=== PATIENT | female | born 1980 | race Hispanic/Latino ===

== ENCOUNTER 2025-02-17 14:08 | Outpatient (CLI) | payer OTHER, SELFPAY ==
--- NOTE | ~2025-02-17 | MM_ITS ---
EXAMINATION: MM screening eva BI w tammy HISTORY: Screening TECHNIQUE: Craniocaudal and mediolateral oblique 3-D tomosynthesis images were obtained and synthetic 2-D images were generated. CAD analysis was submitted and interpreted. COMPARISON: Baseline. BREAST PARENCHYMAL COMPOSITION: The breasts are heterogeneously dense, which may obscure small masses . FINDINGS: There is no evidence of suspicious mass, calcification, or architectural distortion to sug gest malignancy in either breast. IMPRESSION: 1. No mammographic evidence of malignancy. 2. Recommend routine screening mammography in one year. BI-RADS Category 1: Negative Reviewed, dictated and finalized at location B.
--- OUTSIDE RECORDS SUMMARY | 2025-02-17 14:15 | XMS_ITS | Clinical Summary ---
Author Organization [address] Address [address] [place] [address] Care Team Providers Care Quality Eng Name Role Phone Kedny Schuster Primary Care Provider [phone] Mini Jones MD Unavailable + [phone] Allergies Active Allergy Reactions Criticality Noted Date Comments Grass Pollen Itching Low 12/07/2021 Pollen Extracts Itching Low 12/07/2021 Puffy eyes Medications levonorgestreL (Mirena) IUD Rx: Mirena Active fexofenadine (ROSIO) 180 mg tablet Take 180 mg by mouth daily Active Active Problems Problem Noted Date Diagnosed Date Irritable bowel syndrome wit h both constipation and diarrhea 12/07/2021 Annual physical exam 05/04/2020 Assessment & Plan (12/07/2021 11:26 AM CDT): Exercise 5 days a week, 30 mins per day recommended. Eat a heart healthy diet consisting of good, healthy protein (eggs, nuts, peanut butter, chicken, fish, turkey, less pork/beef), lots of vegetables, less carbohydrates and less sugar. Annual physical recommended. Vaccines utd Mamm scheduling PAP utd w. HAIR STYLIST Assessment & Plan (05/04/2020 8:24 AM CDT): Exercise 5 days a week, 30 mins per day recommended. Eat a heart healthy diet consisting of good, healthy protein (eggs, nuts, peanut butter, chicken, fish, turkey, less pork/beef), lots of vegetables, less carbohydrates and less sugar. Annual physical recommended. PAP- Jun 2019, nml- [facility] Tdap- 3 years ago w/ angela Flu- at work Non-seasonal allergic rhinitis due to pollen Resolved Problems Problem Noted Date Diagnosed Date Resolved Date Fecal soiling due to fecal incontinence 07/17/2018 05/04/2020 Immunizations Immunization Administration Dates Next Due Influenza, Quadrivalent, Ellen l Culture-based MDCK, Preservative Free, Antibiotic Free, Intramuscular 05/13/2020 Influenza, Unspecified 04/29/2021 Rho (D) Immune Globulin, IV or IM 02/13/2017 Tdap 01/06/2014 Surgical History Surgery Date Site/Laterality Comments CATARACT EXTRACTION Medical History Medical History Date Comments Fecal soiling due to fecal incontinence 07/17/20 18 Non-seasonal allergic rhinitis due to pollen PFO (patent foramen ovale) Close d at 7 years old Family History Medical History Relation Name Comments No Known Problems Father No Known Problems Mother Arthritis Paternal Grandfather Diabetes Paternal Grandfather Heart disease Paternal Grandmother Relation Name Status Comments Brother Alive Father Alive Maternal Grandfather Maternal Grandmother Mother Alive Paternal Grandfather Paternal Grandmother Social History Tobacco Use Types Packs/Day Years Used Date Smoking Tobacco: Never Alcohol Use Standard Drinks/Week Comments Yes 0 (1 standard drink = 0.6 oz pur e alcohol) socially AUDIT-C Answer Date Recorded Q1: How often do you have a drink containing alc ohol? 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 Gender Identity Not on file Sexual Orientation Not on file Obstetrics History Last Filed Vital Signs Vital Sign Reading Time Taken Comments Blood Pressure 122/78 12/07/2021 9:54 AM CDT Pulse 82 12/07/2021 9:54 AM CDT Temperature 36.3 C (97.3 F) 12/07/2021 9:54 AM CDT Respiratory Rate 14 12/07/2021 9:54 AM CDT Oxygen Saturation 97% 12/07/2021 9:54 AM CDT Inhaled Oxygen Concentration - - Weight 83.5 kg (184 lb) 12/07/2021 9:54 AM CDT Height 160 cm (5' 3) 12/07/2021 9:54 AM CDT Body Mass Index 32.59 12/07/2021 9:54 AM CDT Plan of Treatment Health Maintenance Due Date Last Done Comments Breast Cancer Screening-Mammogram 1981 Hepatitis C Screening 1981 Hepatitis B Screening 1999 Cervical Cancer Screening 11/03/2022 11/03/2021 Depression Screening 12/07/2022 12/07/2021, 05/04/2020 Regular Well Visit/Exam 18-64 12/07/2022 12/07/2021, 05/04/2020, 05/04/2020 DTaP/Tdap/Td Vaccine (2 - Td or Tdap) 01/07/2024 01/06/2014 Covid-19 Vaccine ( season) 2024 06/29/2021, 10/26/2020, 09/28/2020 Influenza Vaccine (Season Ended) 2025 04/29/2021, 05/13/2020 HPV Vaccines Aged Out No longer eligi ble based on patient's age to complete this topic Pneumococcal vaccine <65 Aged Out No longer eligible based on patient's age to complete this topic Varicella Vaccines Discontinued Procedures Procedure Name Priority Date/Time Associated Diagnosis Comments PAP SMEAR WITH HPV Routine 11/03/2021 from Last 3 Months or Most Recently Relevant to Health Maintenance Results * HM PAP SMEAR WITH HPV (11/03/2021) Scribed Pap Smear w/HPV Normal Comment:SEE CARE EVERYWHERE Historical Provider MD HEALTH MAINTENANCE Final Result from Last 3 Months or Most Recently Relevant to Health Maintenance Insurance [employer] Care Teams Quality Eng Relationship Specialty Start Date End Date Kendy Schuster PA [address] [place] [address] PCP - General Critical Care Med 01/08/19 Mini Jones MD [address] [place] [address] Consulting Physician Family Medicine 01/08/19
--- OUTSIDE RECORDS SUMMARY | 2025-02-17 14:15 | XMS_ITS | Referral Summary ---
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 Eat a heart healthy diet consisting of good, healthy protein (eggs, nuts, peanut butter, chicken, fish, turkey, less pork/beef), lots of vegetables, less carbohydrates and less sugar. Annual physical recommended. 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 Gender Identity Not on file Sexual Orientation Not on file Last Filed Vital Signs Vital Sign Reading [...] 12/07/2021 9:54 AM CDT Plan of Treatment Not on file Procedures Procedure Name Priority Date/Time Associated Diagnosis Comments PAP SMEAR WITH HPV Routine 11/03/2021 from Last 3 Months or Most Recently Relevant to Health Maintenance Results * PAP SMEAR WITH HPV (11/03/2021) Scribed Pap Smear w/HPV Normal Comment:SEE CARE EVERYWHERE us Historical Provider MD HEALTH MAINTENANCE Final Result from Last 3 Months or Most Recently Relevant to Health Maintenance Insurance [employer] Care Teams Body Fitter Relationship Specialty Start Date End Date Kendy Schuster PA [address] [place] [address] PCP - General Critical Care Med 01/08/19 Mini Jones MD [address] [place] [address] Consulting Physician Family Medicine 01/08/19
--- OUTSIDE RECORDS SUMMARY | 2025-02-17 14:16 | XMS_ITS | Clinical Summary ---
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
--- OUTSIDE RECORDS SUMMARY | 2025-02-17 14:16 | XMS_ITS | Clinical Summary ---
Author Organization [facility] Address [address] [place] [address] Care Team Providers Care Industrial Maintenance Repairer Name Role Phone Danii Pagan RN Unavailable Marivel Andrews MD Primary Care Provider [phone] Source Comments [facility],non-[facility]iliates and Associated Physician Practices is amultiple site organization consisting of ambulatory clinics and hospital sitesin [place] and [place]. This disclosure is being madepursuant to the Care Everywhere program and may not contain all information available regarding this patient. Last updated 18.[facility] Social History Tobacco Use Types Packs/Day Years Used Date Smoking Tobacco: Never Assessed Comments Unknown Sex and Gender Information Value Date Recorded Sex Assigned at Not on file Legal Sex Female 12:02 PM CDT Gender Identity Not on file Sexual Orientation Not on file Plan of Treatment Health Maintenance Due Date Last Done Comments LIPID TESTING 1981 MAMMOGRAM 1981 HIV SCREENING 1996 HEPATITIS C SCREENING 03/12/1999 DTAP/TDAP/TD VACCINES (1 - Tdap) 2000 HEPATITIS B VACCINE (1 of 3 - 19+ 3-dose series) 2000 HPV VACCINE (1 - 3-dose SCDM series) 2008 COVID-19 VACCINE (1 - 2023-2 5 season) 2024 DEPRESSION SCREENING 07/30/2024 INFLUENZA VACCINE (#1) 2025 ZOSTER VACCINE (1 of 2) 2031 HIB VACCINE Aged Out No longer eligi ble based on patient's age to complete this topic MENINGOCOCCAL (Group B) VACC INE SHARED DECISION-MAKING Aged Out No longer eligibl e based on patient's age to complete this topic MENINGOCOCCAL GROUPS A/C/Y/W VACCINE Aged Out No longer eligible b ased on patient's age to complete this topic PNEUMOCOCCAL VACCINE Aged Out No long er eligible based on patient's age to complete this topic Insurance ANTHEM ANTHEM ANTHEM Care Teams Industrial Maintenance Repairer Relationship Specialty Start Date End Date Marivel Falcon MD [address] [place] [address] PCP - General Family Medicine 11/10/13 Danii Pagan RN Trash Collector Supervisor 10/06/13
--- OUTSIDE RECORDS SUMMARY | 2025-02-17 14:16 | XMS_ITS | Data Portability ---
Author Organization [facility] Address [address] [place] [address] [address] Care Team Providers Care Web Site Manager Name Role Phone JORDYN BUNDY Primary Care Provider Assessment Encounter Date Assessment Date Assessment LastModified by Organization Details LastModified Time 06/24/2024 06/24/2024 Annual gynecological exam performed. Patient will come back in a year unless there are new symptoms. [email or web address] Not available 06/24/2024 15:47:51 Plan of Treatment Reminders Order Date Submit Date Provider Last Modified By Organization Details Last Modified Time Details Appointments None recorded. Lab test, urine 2023 [facility], [address], [address], [place], [address], 4 10:44:38 hormone panel, serum or plasma 2023 [facility] (Lab), [address], [place], [address], 4 05:40:45 CMP, serum or plasma 2023 [facility] (Lab), [address], [place], [address], 4 05:40:44 CBC w/ auto diff 2023 [facility] (Lab), [address], [place], [address], 4 05:40:43 lipid panel, blood 2023 024 [facility] (Lab), [address] [facility], [place], [address], 4 05:40:44 HbA1c (hemoglobin A1c), blood 2023 [facility] (Lab), [address], [place], [address], 4 05:40:46 25-hydroxyv itamin D2 + 25-hydroxyv itamin D3, QN, serum or plasma 2023 [facility] (Lab), [address], [place], [address], 4 05:40:45 TSH, serum or plasma 2023 024 [facility] (Lab), [address], [place], [address], 4 05:40:45 Referral None recorded. Procedures None recorded. Surgeries None recorded. Imaging None recorded. Medication Orders estradiol 0.05 mg/24 hr semiweekly transdermal patch 2024 025 [id number], [address], [place], [id number], 5 11:58:39 estradiol 0.05 mg/24 hr semiweekly transdermal patch 2023 024 [id number], [address], [place], [id number], 4 10:21:00 Mirena 21 mcg/24 hr (up to 8 years) 52 mg intrauterin e device 2023 024 [email or web address] Not available 4 14:15:14 Patient TargetsNo targets recorded. Patient InstructionsNo instructions recorded. Reason for Referral None Reported. Results Created Date Observation Date Name Description Value Unit Range Abnormal Flag Note LastModifiedBy Organization Detail LastModifiedTime 04/09/20 23 04/09/2023 IMAGE GUIDE D PAP AND HPV REGAR DLESS image guided Pap, HPV regardless of Pap result SEE RESULT S BELOW abnormal CASE REPOR T: Cytol ogy Gynec ologi dominik Repor t Case: [id number] Autho suleiman ayala Provi lopez: Ying Desir, MACHINIST APPRENTICE Colle cted: 04/09 1710 Order ing Locat ion: [place] Patho logy Recei noé: 04/10 0311 First Scree n: Praveena Nuno , MARK Patho logis t: Ashutosh Avila MD Speci men: Scree radha Pap - Image d, Cervi x STATE MENT OF ADEQU ACY: Satis facto ry for evalu ation Trans forma tion zone compo nent prese nt FINAL DIAGN OSIS: Epith elial Cell Abnor malit y, Squam ous Cell: Atypi dominik Squam ous Cells of Undet ermin ed Oliviai mike ce (ASC- [place]). Elect chrystal coe by Ashutosh Avila MD on 2022 at 3:30 PM ----- ----- ----- ----- ----- ----- ----- ----- ----- ----- ----- ----- ----- ----- ----- ----- ----- ---- HPV RESUL TS: HPV mRNA E6/E7 : No HPV mRNA Detec smith NOTE: This high risk HPV mRNA assay detec ts fourt een high- risk HPV types (16, 18, 31, 33, 35, 39, 45, 51, 52, 56, 58, 59, 66, 68) witho ut diffe renti ation . COMME NT: This speci men was revie wed by a Cytot echno logis t and/o r Patho logis t (as indic ated in this repor t) after evalu ation using the Thinp rep Imagi ng Syste m. CLINI DOMINIK INFOR MATIO N: Menst rual Statu s: LMP (if appli cable ): Clini dominik Histo ry/Pr eviou s Pap: Type of Neopl won (if appli cable ): Signi fican t Clini dominik Findi ngs: Other Histo ry: Hormo codi (if appli cable ): SUGLENKA STED FOLLO W-UP: Follo w up as warra nted, based on curre nt guide lines and indiv idual patie nt consi derat ions. Not Available [facility] (Lab) [address], [place], [address], 04/12/2023 16:32:39 06/24/20 24 06/24/2024 IMAGE GUIDE D PAP AND HPV REGAR DLESS image guided Pap, HPV regardless of Pap result SEE RESULT S BELOW CASE REPOR T: Cytol ogy Gynec ologi dominik Repor t Case: [id number] Autho suleiman jamie Provi lopez: Ying Desir, TARA Colle cted: 06/24 1605 Order ing Locat ion: [place] Patho logy Recei noé: 06/25 1723 First Scree n: Shamika Tavarez, CT Rescr een: Biju ivan, [place] am, CT Speci men: Bhavesh garcia Pap - Image d, Cervi x STATE MENT OF ADEQU ACY: UNSAT ISFAC TORY SPECI MEN ----- ----- ----- ----- ----- ----- ----- ----- ----- ----- ----- ----- ----- ----- ----- ----- ----- ---- FINAL DIAGN OSIS: Unsat isfac tory for evalu ation . Inade quate squam ous epith elial compo nent for diagn osis. Elect chrystal coe by Carmen Lynn for Strut z, [place] am, CT on 07/08 at 10:44 AM ----- ----- ----- ----- ----- ----- ----- ----- ----- ----- ----- ----- ----- ----- ----- ----- ----- ---- HPV RESUL TS: HPV mRNA E6/E7 : No HPV mRNA Detec smith NOTE: This high risk HPV mRNA assay detec ts fourt een high- risk HPV types (16, 18, 31, 33, 35, 39, 45, 51, 52, 56, 58, 59, 66, 68) witho ut diffe renti ation . COMME NT: This speci men was revie wed by a Cytot echno logis t and/o r Patho logis t (as indic ated in this repor t) after evalu ation using the Thinp rep Imagi ng Syste m. CLINI DOMINIK INFOR MATIO N: Menst rual Statu s: LMP (if appli cable ): Clini dominik Histo ry/Pr eviou s Pap: Type of Neopl won (if appli cable ): Signi fican t Clini dominik Findi ngs: Other Histo ry: Hormo codi (if appli cable ): Not Available [facility] (Lab) [address], [place], [address], 07/08/2024 11:49:35 06/25/20 24 06/25/2024 CBC W/DIF F WBC 4.5 10'3/ uL 3.5-10 .5 Not Available [facility] (Lab) [address], [place], [address], 06/26/2024 05:40:43 06/25/20 24 06/25/2024 CBC W/DIF F RBC 4.44 10'6/ uL (based on docume nted legal sex) 3.80-5 .20 Not Available [facility] (Lab) [address], [place], [address], 06/26/2024 05:40:43 06/25/20 24 06/25/2024 CBC W/DIF F HGB 13.2 g/dL (based on docume nted legal sex) 11.6-1 5.4 Not Available [facility] (Lab) [address], [place], [address], 06/26/2024 05:40:43 06/25/20 24 06/25/2024 CBC W/DIF F HCT 40.1 % (based on docume nted legal sex) 34.0-4 5.0 Not Available [facility] (Lab) [address], [place], [address], 06/26/2024 05:40:43 06/25/20 24 06/25/2024 CBC W/DIF F MCV 90.3 fL 80.0-9 9.0 Not Available [facility] (Lab) [address], [place], [address], 06/26/2024 05:40:43 06/25/20 24 06/25/2024 CBC W/DIF F MCH 29.7 pg 27.0-3 4.0 Not Available [facility] (Lab) [address], [place], [address], 06/26/2024 05:40:43 06/25/20 24 06/25/2024 CBC W/DIF F MCHC 32.9 g/dL 32.0-3 5.5 Not Available [facility] (Lab) [address], [place], [address], 06/26/2024 05:40:43 06/25/20 24 06/25/2024 CBC W/DIF F RDW 12.1 % 11.0-1 5.0 Not Available [facility] (Lab) [address], [place], [address], 06/26/2024 05:40:43 06/25/20 24 06/25/2024 CBC W/DIF F plt 322 10'3/ uL 150-40 0 Not Available [facility] (Lab) [address], [place], [address], 06/26/2024 05:40:43 06/25/20 24 06/25/2024 CBC W/DIF F MPV 10.5 fL 8.8-12 .1 Not Available [facility] (Lab) [address], [place], [address], 06/26/2024 05:40:43 06/25/20 24 06/25/2024 CBC W/DIF F NRBC's 0.0 % 0.0 Not Available [facility] (Lab) [address], [place], [address], 06/26/2024 05:40:43 06/25/20 24 06/25/2024 CBC W/DIF F absolute NRBCs 0.0 10'3/ uL no refere nce range establ ished Not Available [facility] (Lab) [address], [place], [address], 06/26/2024 05:40:43 06/25/20 24 06/25/2024 CBC W/DIF F neutrophils 58.4 % 34.0-7 3.0 Not Available [facility] (Lab) [address], [place], [address], 06/26/2024 05:40:43 06/25/20 24 06/25/2024 CBC W/DIF F lymphocytes 31.9 % 15.0-5 0.0 Not Available [facility] (Lab) [address] [facility], [place], [address], 06/26/2024 05:40:43 06/25/20 24 06/25/2024 CBC W/DIF F monocytes 7.0 % 1.0-15 .0 Not Available [facility] (Lab) [address], [place], [address], 06/26/2024 05:40:43 06/25/20 24 06/25/2024 CBC W/DIF F eosinophils 0.9 % 0.0-8. 0 Not Available [facility] (Lab) [address], [place], [address], 06/26/2024 05:40:43 06/25/20 24 06/25/2024 CBC W/DIF F basophils 1.6 % 0.0-2. 0 Not Available [facility] (Lab) [address], [place], [address], 06/26/2024 05:40:43 06/25/20 24 06/25/2024 CBC W/DIF F immature granulocytes 0.2 % no define d refere nce range Not Available [facility] (Lab) [address], [place], [address], 06/26/2024 05:40:43 06/25/20 24 06/25/2024 CBC W/DIF F absolute neutrophils 2.6 10'3/ uL 1.5-8. 0 Not Available [facility] (Lab) [address], [place], [address], 06/26/2024 05:40:43 06/25/20 24 06/25/2024 CBC W/DIF F absolute lymphocytes 1.4 10'3/ uL 1.0-4. 0 Not Available [facility] (Lab) [address], [place], [address], 06/26/2024 05:40:43 06/25/20 24 06/25/2024 CBC W/DIF F absolute monocytes 0.3 10'3/ uL 0.2-1. 0 Not Available [facility] (Lab) [address] [place], [address], 06/26/2024 05:40:43 06/25/20 24 06/25/2024 CBC W/DIF F absolute eosinophils 0.0 10'3/ uL 0.0-0. 6 Not Available [facility] (Lab) [address], [place], [address], 06/26/2024 05:40:43 06/25/20 24 06/25/2024 CBC W/DIF F absolute basophils 0.1 10'3/ uL 0.0-0. 3 Not Available [facility] (Lab) [address], [place], [address], 06/26/2024 05:40:43 06/25/20 24 06/25/2024 CBC W/DIF F absolute immature granulocytes 0.0 10'3/ uL 0.00-0 .10 06/26 2:51 AM: P indic ates parti al resul ts on a panel have been relea sed. Addit ional resul ts will follo w. 06/26 2:51 AM: This resul t has been final verif ied. No addit ional or lorenzana ed resul ts are expec smith. Not Available [facility] (Lab) [address], [place], [address], 06/26/2024 05:40:43 06/25/20 24 06/25/2024 CMP(C OMPRE HENSI VE METAB OLIC PANEL ) sodium 142 mmol/ L 133-14 6 Not Available [facility] (Lab) [address], [place], [address], 06/26/2024 05:40:44 06/25/20 24 06/25/2024 CMP(C OMPRE HENSI VE METAB OLIC PANEL ) potassium 4.2 mmol/ L 3.5-5. 1 Not Available [facility] (Lab) [address], [place], [address], 06/26/2024 05:40:44 06/25/20 24 06/25/2024 CMP(C OMPRE HENSI VE METAB OLIC PANEL ) chloride 105 mmol/ L 98-107 Not Available [facility] (Lab) [address], [place], [address], 06/26/2024 05:40:44 06/25/20 24 06/25/2024 CMP(C OMPRE HENSI VE METAB OLIC PANEL ) carbon dioxide 28 mmol/ L 21-31 Not Available [facility] (Lab) [address], [place], [address], 06/26/2024 05:40:44 06/25/20 24 06/25/2024 CMP(C OMPRE HENSI VE METAB OLIC PANEL ) anion gap 9 mmol/ L 4-13 Not Available [facility] (Lab) [address], [place], [address], 06/26/2024 05:40:44 06/25/20 24 06/25/2024 CMP(C OMPRE HENSI VE METAB OLIC PANEL ) blood urea nitrogen 12 mg/dL 7-25 Not Available [facility] (Lab) [address], [place], [address], 06/26/2024 05:40:44 06/25/20 24 06/25/2024 CMP(C OMPRE HENSI VE METAB OLIC PANEL ) creatinine 0.66 mg/dL 0.60-1 .30 Not Available [facility] (Lab) [address], [place], [address], 06/26/2024 05:40:44 06/25/20 24 06/25/2024 CMP(C OMPRE HENSI VE METAB OLIC PANEL ) egfrcr (CKD-epi 2020) >90 mL/mi n/1.7 3_m2 >=60 Not Available [facility] (Lab) [address], [place], [address], 06/26/2024 05:40:44 06/25/20 24 06/25/2024 CMP(C OMPRE HENSI VE METAB OLIC PANEL ) calcium 9.6 mg/dL 8.3-10 .5 Not Available [facility] (Lab) [address], [place], [address], 06/26/2024 05:40:44 06/25/20 24 06/25/2024 CMP(C OMPRE HENSI VE METAB OLIC PANEL ) glucose 84 mg/dL 70-100 Not Available [facility] (Lab) [address], [place], [address], 06/26/2024 05:40:44 06/25/20 24 06/25/2024 CMP(C OMPRE HENSI VE METAB OLIC PANEL ) protein, total 7.1 g/dL 6.4-8. 3 Not Available [facility] (Lab) [address], [place], [address], 06/26/2024 05:40:44 06/25/20 24 06/25/2024 CMP(C OMPRE HENSI VE METAB OLIC PANEL ) albumin 4.6 g/dL 3.5-5. 0 Not Available [facility] (Lab) [address], [place], [address], 06/26/2024 05:40:44 06/25/20 24 06/25/2024 CMP(C OMPRE HENSI VE METAB OLIC PANEL ) ALT 12 units /L 9-43 Not Available [facility] (Lab) [address], [place], [address], 06/26/2024 05:40:44 06/25/20 24 06/25/2024 CMP(C OMPRE HENSI VE METAB OLIC PANEL ) alkaline phosphatase 82 units /L 34-104 Not Available [facility] (Lab) [address] [place], [address], 06/26/2024 05:40:44 06/25/20 24 06/25/2024 CMP(C OMPRE HENSI VE METAB OLIC PANEL ) AST 15 units /L 13-39 Not Available [facility] (Lab) [address], [place], [address], 06/26/2024 05:40:44 06/25/20 24 06/25/2024 CMP(C OMPRE HENSI VE METAB OLIC PANEL ) bilirubin, total 0.6 mg/dL 0.2-1. 2 Not Available [facility] (Lab) [address] [place], [address], 06/26/2024 05:40:44 06/25/20 24 06/25/2024 LIPID PANEL ,AMA (LDL- CALC) total cholesterol 169 mg/dL 0-199 Not Available [facility] (Lab) [address] [place], [address], 06/26/2024 05:40:44 06/25/20 24 06/25/2024 LIPID PANEL ,AMA (LDL- CALC) triglyceride s 60 mg/dL 0-150 NCEP Refer ence Value s for Trigl yceri temo: Cheri l: <150 mg/dL Borde rline High: 150 - 199 mg/dL High: 200 - 499 mg/dL Very High: >/= 500 mg/dL Not Available [facility] (Lab) [address] [place], [address], 06/26/2024 05:40:44 06/25/20 24 06/25/2024 LIPID PANEL ,AMA (LDL- CALC) HDL cholesterol 66 mg/dL >40 Not Available [facility] (Lab) [address] [place], [address], 06/26/2024 05:40:44 06/25/20 24 06/25/2024 LIPID PANEL ,AMA (LDL- CALC) LDL cholesterol 88 mg/dL 0-99 Cutof f value s recom yang d by the Carmelo nal Chloé stero l Educa tion Progr am: DORENE ABLE: Chloé stero l <200 mg/dL LDL <100 mg/dL BORDE RLINE : Chloé stero l 200-2 39 mg/dL LDL 101-1 59 mg/dL HIGHE R RISK: Chloé stero l >240 mg/dL LDL >160 mg/dL , HDL <40 mg/dL Not Available [facility] (Lab) [address] [place], [address], 06/26/2024 05:40:44 06/25/20 24 06/25/2024 LIPID PANEL ,AMA (LDL- CALC) non-HDL cholesterol 103 mg/dL no refere nce range A reaso nable goal for non-H DL chloé stero l is one that is 30 mg/dL highe r than the LDL chloé stero l goal. Not Available [facility] (Lab) [address], [place], [address], 06/26/2024 05:40:44 06/25/20 24 06/25/2024 LIPID PANEL ,AMA (LDL- CALC) chol/HDL ratio 2.6 . 0.0-5. 0 On November 21, 2022, [facility] labor atori manuel lorenzana ed the equat ion for calcu latin g estim ated low-d ensit y lipop rotei n-cho leste rol (LDL- C) from the Fried norris equat ion to the Di n/Hop kins equat ion. This new equat ion is only valid for lipid panel s with trigl yceri temo < 400 mg/dL . Studi es have demon strat ed that this new equat ion will impro ve the accur acy of LDL-C , espec ially in scena reza when LDL-C domenic ntrat ions are relat ively low (< 100 mg/dL ), trigl yceri temo are eleva smith, or patie nt is non-f astin g. Refer ences : - Di bolanos, Paresh Trinh, Ra Jacob , [facility] sabi tovar, Bennett Scott, Bennett green, Bharath todd , and Homer Tavarez . 2013. Comp ariso n of a Novel Metho d vs the Fried norris Equat ion for Estim ating Low-D ensit y Lipop rotei n Chloé stero l Level s from the Stand miles Lipid Profi le. TIM: The Journ al of the Ameri can Medic al Assoc iatio n 310 (19): 2060- . - Stephanie trevino V, Irish J, Charlee trevino A, James M, Carina madison R, Al trevino E, Celine todd RS, Corby SR, Di n SS. Fast ing Versu s Nonfa sting and Low-D ensit y Lipop rotei n Chloé stero l Accur acy. Aneudyu leobardo n. 2017Jul 31;137 (1):1 0-19. Not Available [facility] (Lab) [address], [place], [address], 06/26/2024 05:40:44 06/25/20 24 06/25/2024 TSH, REFLE X FREE T4 TSH 3.19 uIU/m L 0.30-5 .33 Not Available [facility] (Lab) [address], [place], [address], 06/26/2024 05:40:45 06/25/20 24 06/25/2024 FSH, LH, ESTRA DIOL estradiol <5.0 pg/mL This assay was perfo rmed using [employer] ratio n reage nts and test kits. Value s obtai ziggy with other assay metho ds or kits canno t be used inter lorenzana eay . Femal e Estra diol Range s: Folli cular phase 12.4- 233 pg/mL Ovula tion phase 41.0- 398 pg/mL Lutea l phase 22.3- 341 pg/mL Postm enopa usal <5-13 8 pg/mL Healt hy Pregn ant Women 1st Trime ster 154-3 243 pg/mL 2nd Trime ster 1561- 38191 pg/mL 3rd Trime ster 8525- >3000 0 pg/mL Not Available [facility] (Lab) [address], [place], [address], 06/26/2024 05:40:45 06/25/20 24 06/25/2024 FSH, LH, ESTRA DIOL FSH 93.4 mIU/m L This assay was perfo rmed using [employer] ratio n reage nts and test kits. Value s obtai ziggy with other assay metho ds or kits canno t be used inter lorenzana eably . Femal es Folli cular : 3.5-1 2.5 mIU/m L Ovula tion: 4.7-2 1.5 mIU/m L Lutea l: 1.7-7 .7 mIU/m L Postm enopa use: 25.8- 134.8 mIU/m L Not Available [facility] (Lab) [address], [place], [address], 06/26/2024 05:40:45 06/25/20 24 06/25/2024 FSH, LH, ESTRA DIOL LH 47.1 mIU/m L This assay was perfo rmed using [employer] ratio n reage nts and test kits. Value s obtai ziggy with other assay metho ds or kits canno t be used inter lorenzana eably . Femal es Mid-F ollic ular: 2.4-1 2.6 mIU/m L Mid-C ycle: 14.0- 95.6 mIU/m L Mid-L uteal : 1.0-1 1.4 mIU/m L Postm enopa use: 7.7-5 8.5 mIU/m L Not Available [facility] (Lab) [address], [place], [address], 06/26/2024 05:40:45 06/25/20 24 06/25/2024 VITAM IN D, 25-OH (TOTA L D2/D3 ) vitamin D, 25-hydroxy, total 39.6 NG/mL 30.0-1 00.0 Sugge stive of Defic iency : <20 ng/mL Sugge stive of Insuf ficie ncy: 20-29 ng/mL Sugge stive of Suffi cienc y: 30-10 0 ng/mL Sugge stive of Toxic ity: >150 ng/mL Not Available [facility] (Lab) [address] [place], [address], 06/26/2024 05:40:45 06/25/20 24 06/25/2024 HEMOG LOBIN A1C hemoglobin A1C 5.3 % 0-5.6 The Ameri can Diabe aleksandra Assoc iatio n recom mends that a prima ry goal of thera py shoul d be a HBA1C of < 7% and that physi cians adina coe reeva luate the treat ment regim en in patie nts with HBA1C value s consi stent ly > 8%. <5.7% Cheri l 5.7 - 6.4% Incre ased risk for diabe aleksandra >=6.5 % Diagn ostic of diabe aleksandra <7.0% Goal of thera py >8.0% Actio n sugge sted Not Available [facility] (Lab) [address], [place], [address], 06/26/2024 05:40:46 07/24/20 24 07/24/2024 CT/GC AND TRICH OMONA S VAGIN JASEN (RRNA ), URINE chlamydia trachomatis, PCR Negati ve negati ve Not Available [facility] (Lab) [address], [place], [address], 07/25/2024 12:39:47 07/24/20 24 07/24/2024 CT/GC AND TRICH OMONA S VAGIN JASEN (RRNA ), URINE neisseria gonorrhoeae, PCR Negati ve negati ve Not Available [facility] (Lab) [address], [place], [address], 07/25/2024 12:39:47 07/24/20 24 07/24/2024 CT/GC AND TRICH OMONA S VAGIN JASEN (RRNA ), URINE trichomonas vaginalis ribosomal RNA (rrna) Negati ve negati ve Not Available [facility] (Lab) [address], [place], [address], 07/25/2024 12:39:47 07/24/20 24 07/24/2024 IMAGE GUIDE D PAP AND HPV REGAR DLESS image guided Pap, HPV regardless of Pap result SEE RESULT S BELOW abnormal CASE REPOR T: Cytol ogy Gynec ologi dominik Repor t Case: [id number] Autho suleiman g Provi lopez: Ying Desir NP Colle cted: 07/24 1056 Order ing Locat ion: [place] Patho logy Recei noé: 07/25 0203 First Bhavesh n: Donell sparks, Moham ed, CT Patho logis t: Talib baptiste, Marimar Gordon MD Speci men: Bhavesh garcia Pap - Image d, Cervi x STATE MENT OF ADEQU ACY: Satis facto ry for evalu ation Trans forma tion zone compo nent prese nt ----- ----- ----- ----- ----- ----- ----- ----- ----- ----- ----- ----- ----- ----- ----- ----- ----- ---- FINAL DIAGN OSIS: Epith elial Cell Abnor malit y, Squam ous Cell: Atypi dominik Squam ous Cells of Undet ermin sabi koehler (ASC- [place]). Elect chrystal coe by Marimar Sams MD on 025 at 1124 STAFF SCIENTIST ----- ----- ----- ----- ----- ----- ----- ----- ----- ----- ----- ----- ----- ----- ----- ----- ----- ---- HPV RESUL TS: HPV mRNA E6/E7 : No HPV mRNA Detec smith NOTE: This high risk HPV mRNA assay detec ts fourt een high- risk HPV types (16, 18, 31, 33, 35, 39, 45, 51, 52, 56, 58, 59, 66, 68) witho ut diffe renti ation . COMME NT: This speci men was revie wed by a Cytot echno logis t and/o r Patho logis t (as indic ated in this repor t) after evalu ation using the Thinp rep Imagi ng Syste m. CLINI DOMINIK INFOR MATIO N: Menst rual Statu s: LMP (if appli cable ): Clini dominik Histo ry/Pr eviou s Pap: Type of Neopl won (if appli cable ): Signi fican t Clini dominik Findi ngs: Other Histo ry: Hormo codi (if appli cable ): SUGGE STED FOLLO W-UP: Follo w up as warra nted, based on curre nt guide lines and indiv idual patie nt consi derat ions. Not Available [facility] (Lab) [address], [place], [address], 08/06/2024 12:29:47 07/24/20 24 07/24/2024 pregn chris test, urine HCG negati ve Not Available [facility] [address], [place], [address], 07/24/2024 10:44:32 Result Notes None recorded. Problems Name Problem SNOMED Code Status Onset Date Resolution Date Notes Provider Name and Address Organization Details Recorded Time Pregnanc y test positive 212601341 Completed 201210/06/2020 Pregnanc y examinat ion or test, positive result;R ecorded Elsewher e: No Locat ion: [facility] S ource: EHR Wafer Fabricator jose luis: N Jalynti ce ID: [id number] Stanton lable Time: 10:15:00 AM Adelita Grant [facility] 17:26:42 Amenorrh ea [id number] Completed 201210/06/2020 Absence of menstrua tion;Rec orded Elsewher e: No Locat ion: [facility] S ource: EHR Wafer Fabricator jose luis: N Practi ce ID: [id number] Stanton lable Time: 10:15:00 AM [facility]:01 Ultrason ography Completed 201310/06/2020 Antenata l screenin g for malforma tion using ultrason ics;Dennys rded Elsewher e: No Locat ion: [facility] S ource: EHR Wafer Fabricator jose luis: N Practi ce ID: [id number] Stanton lable Time: 09:30:00 AM Adelita neil, [facility] 17:26:59 Antenata l screenin g Completed 201310/06/2020 Antenata l screenin g for malforma tion using ultrason ics;Dennys rded Elsewher e: No Locat ion: [facility] S ource: EHR Wafer Fabricator jose luis: Huma Lucas ce ID: [id number] Stanton lable Time: 09:30:00 AM Adelita neil, [facility] 17:25:02 Congenit al malforma tion [id number] Completed 201310/06/2020 Antenata l screenin g for malforma tion using ultrason ics;Dennys rded Elsewher e: No Locat ion: [facility] S ource: EHR Wafer Fabricator jose luis: Huma Lucas ce ID: 0001 Stanton lable Time: 09:30:00 AM Adelita Grant rashaad, [facility] 17:25:08 Primigra dony [id number] Completed 201310/06/2020 Supervis ion of normal first pregnanc y;Record ed Elsewher e: No Locat ion: [facility] Huma Lucas ce ID: 0001 Stanton lable Time: 10:00:00 AM Adelita [place] rashaad, [facility] 17:26:47 Delivery normal [id number] Completed 201310/06/2020 Normal delivery ;Practic e ID: 0001 Adelita Rudy neil, [facility] 17:25:12 Single live from singleto n pregnanc y [id number] Completed 201310/06/2020 Mother with single liveborn ;Practic e ID: 0001 Adelita neil, [facility] 17:26:51 Postpart um care Completed 201310/06/2020 Post Followup ;Recorde d Elsewher e: No [facility] [employer] jose luis: N Practi ce ID: 0001 Stanton lable Time: 10:15:00 AM Adelita neil [facility] 17:26:38 Alopecia [id number] Completed 201310/06/2020 Hair loss;Rec orded Elsewher e: No Locat ion: [facility] S ource: [facility]ator jose luis: N Practi ce ID: 0001 Stanton lable Time: 02:00:00 PM Adelita Grant [facility], [facility] 17:25:00 Dyspareu elena [id number] Completed 201310/06/2020 Dyspareu elena;Dennys rded Elsewher e: No Locat ion: [facility] S ource: [facility]ator jose luis: N Practi ce ID: 0001 Stanton lable Time: 02:00:00 PM Adelita neil [facility] 17:25:13 Suppress ed lactatio n - delivere d with postnata l complica tion [id number] Completed 201310/06/2020 Decrease d breast milk producti on, delayed complica tion after delivery ;Recorde d Elsewher e: No Locat ion: [facility] S ource: [facility] [employer] jose luis: N Practi ce ID: 0001 Stanton lable Time: 02:00:00 PM Adelita neil [facility] 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 17:26:54 Screenin g for malignan t neoplasm of cervix Completed 201310/06/2020 Screenin g for malignan t neoplasm s of the cervix;R ecorded Elsewher e: No [facility] [employer] jose luis: N Practi ce ID: 0001 Stanton lable Time: 09:30:00 AM Adelita neil [facility] 17:26:48 Syphilis test finding [id number] Completed 201510/06/2020 Encntr screen for infectio ns w sexl mode of transmis s;Record ed Elsewher e: No Locat ion: [facility] S ource: E[facility] Wafer [employer]ricator jose luis: N Practi ce ID: 0001 Stanton lable Time: 10:30:00 AM Adelita Grant [facility] 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 17:26:53 Secondar y amenorrh ea [id number] Completed 201510/06/2020 Secondar y amenorrh ea;Recor ded Elsewher e: No Locat ion: [facility] S ource: EHR Wafer Fabricator jose luis: N Practi ce ID: 0001 Stanton lable Time: 10:30:00 AM Adelita neil [facility] 17:26:49 Infectio n screenin g Completed 201510/06/2020 Encounte r for screenin g for oth infec/pa rastc diseases ;Recorde d Elsewher e: No Locat ion: Radha madison [facility] S ource: EHR Wafer Fabricator jose luis: N Practi ce ID: 0001 Stanton lable Time: 10:30:00 AM Adelita neil, [facility] 17:25:21 Pregnanc y detectio n examinat ion Completed 201510/06/2020 Encounte r for pregnanc y test, result positive ;Recorde d Elsewher e: No Locat ion: [facility] S ource: EHR Wa[employer]ator jose luis: N Practi ce ID: 0001 Stanton lable Time: 10:30:00 AM Adelita neil, [facility] 17:26:40 Normal pregnanc y in multigra dony [id number] Completed 201610/06/2020 Encounte r for supervis ion of other normal pregnanc y, first trimeste r;Record ed Elsewher e: No Locat ion: [facility] S ource: E[facility] Wa[employer]ator jose luis: N Practi ce ID: 0001 Stanton lable Time: 09:00:00 AM Adelita neil, [facility] 17:26:34 Gestatio n period, 24 weeks [id number] Completed 201610/06/2020 24 weeks gestatio n of pregnanc y;Record ed Elsewher e: No Locat ion: [facility] S ource: E[facility] Wafer [employer]ator jose luis: N Practi ce ID: 0001 Stanton lable Time: 04:30:00 PM Adelita niel, [facility] 17:25:[address] Concept Completed 201610/06/2020 Maternal care for excess growth, second tri, unsp;Rec orded Elsewher e: No [facility]: EHR Wafer Fabricator jose luis: N Practi ce ID: 0001 Stanton lable Time: 04:30:00 PM Adelita neil [facility] 17:25:05 Uterine size for dates discrepa ncy Completed 201610/06/2020 Uterine size-mamta e discrepa ncy, second trimeste r;Record ed Elsewher e: No Locat ion: [facility] S ource: EHR Wafer Fabricator jose luis: N Practi ce ID: 0001 Stanton lable Time: 04:30:00 PM Adelita Grant null, [facility] 17:27:00 Pregnanc y, childbir th and puerperi um finding Completed 201610/06/2020 Encounte r for supervis ion of normal first pregnanc y, third trimeste r;Record ed Elsewher e: No Locat ion: [facility] S ource: EHR Wafer Fabricator jose luis: N Practi ce ID: 0001 Stanton lable Time: 02:00:00 PM Adelita neil, [facility] 17:26:45 Lacerati on of female perineum Completed 201610/06/2020 Second degree perineal lacerati on during delivery ;Practic e ID: 0001 Adelita neil, [facility] 17:25:25 Gestatio n period, 39 weeks [id number] Completed 201610/06/2020 39 weeks gestatio n of pregnanc y;Practi ce ID: 0001 Adelita neil, [facility] 17:25:17 Contrace ptive sheath status [id number] Completed 201610/06/2020 Encounte r for initial prescrip tion of other contrace ptives;R ecorded Elsewher e: No Locat ion: [facility] S ource: EHR Wafer Fabricator jose luis: N Practi ce ID: 0001 Stanton lable Time: 05:45:00 PM Adelita Rudy neil, [facility] 17:25:10 Lochia finding Completed 201610/06/2020 Encounte r for routine postpart um follow-u p;Record ed Elsewher e: No Locat ion: Radha madison [facility] S ource: EHR Wafer Fabricator jose luis: N Practi ce ID: 0001 Stanton lable Time: 05:45:00 PM Adelita Grant [facility], [facility] 17:26:35 Perineal lacerati on during delivery [id number] Completed 201610/06/2020 Perineal lacerati on during delivery , unspecif ied;Dennys rded Elsewher e: No Locat ion: [facility] gricelda [facility] S ource: EHR Wafer Fabricator jose luis: N Practi ce ID: 0001 Stanton lable Time: 04:00:00 PM Adelita neil, [facility] 17:26:37 Elevated blood-pr essure reading without diagnosi s of hyperten kiana [id number] Completed 201610/06/2020 Elevated blood-pr essure reading, without diagnosi s of hyperten kiana;Rec orded Elsewher e: No Locat ion: [facility] gricelda [facility] S ource: EHR Wafer Fabricator jose luis: N Practi ce ID: 0001 Stanton lable Time: 04:00:00 PM Adelita neil, [facility] 17:25:15 Insertio n of intraute rine contrace ptive device Completed 201610/06/2020 Encounte r for insertio n of intraute rine contrace ptive device;R ecorded Elsewher e: No [facility]at [facility] S ource: EHR Wafer Fabricator jose luis: N Practi ce ID: 0001 Satnton lable Time: 01:45:00 PM Adelita neil, [facility] 17:25:22 Clinical finding Completed 201610/06/2020 Presence of (intraut erine) contrace ptive device;R ecorded Elsewher e: No Locat ion: [facility] S ource: EHR Wafer Fabricator jose luis: N Jalynti ce ID: 0001 Stanton lable Time: 01:45:00 PM Adelita neil, [facility] 17:25:07 Pregnanc y test negative [id number] Completed 201610/06/2020 Encounte r for pregnanc y test, result negative ;Recorde d Elsewher e: No Locat ion: [facility] S ource: EHR Wafer Fabricator jose luis: N Practi ce ID: 0001 Stanton lable Time: 01:45:00 PM Adelita neil, [facility] 17:26:41 Granulom atous disorder of the skin and subcutan eous tissue [id number] Completed 201610/06/2020 Oth granulom atous disorder s of the skin, subcu;Re corded Elsewher e: No Locat ion: [facility] S ource: EHR Wafer Fabricator jose luis: N Practi ce ID: 0001 Stanton lable Time: 08:30:00 AM Adelita neil, [facility] 17:25:19 Body mass index 25-29 - overweig [id number] Completed 201610/06/2020 Body mass index (BMI) 29.0-29. 9, adult;Re corded Elsewher e: No Locat ion: [facility] S ource: EHR Wafer Fabricator jose luis: N Practi ce ID: 0001 Stanton lable Time: 08:30:00 AM Adelita niel [facility] 17:25:[address] Concept Completed 201810/06/2020 Encntr for general adult medical exam w/o abnormal findings ;Recorde d Elsewher e: No Locat ion: [facility] S ource: EHR Wafer Fabricator jose luis: N Practi ce ID: 0001 Stanton ronit Time: 11:00:00 AM [facility] 17:26:52 Problem Notes None recorded. Procedures Surgical History Date Name Laterality Status Provider Name and Address Organization Details Recorded Time 07/24/20 24 IUD Removal completed GLEN Campa [address], [place], [address], [facility] 07/24/2024 10:18:30 07/24/20 24 IUD Insertion completed GLEN Campa [address], [place], [address], [facility] 07/24/2024 10:18:33 07/24/20 24 Date of Last Pap Smear completed Alicia Orozco [facility] 08/07/2024 19:41:21 07/30/19 17 Xcapsl ctrc rmvl cplx wo ecp completed Adelita Grant [facility] 10/06/2020 17:35:24 07/30/19 10 extraction of wisdom tooth completed Alicia Orozco [facility] 11/28/2021 12:25:36 Imaging Results None recorded. Procedure Notes None recorded. Medical Equipment None Reported. Allergies Allergen ID Allergen Name Allergen Category Reaction Reaction Severity Criticality Documentation Date Start Date Code Code System Note Provider Name and Address Organization Details Recorded Time 45817 grass pollen environme nt,medica tion Not available Not available Not available 10/07/2020 04071 UNK [facility]ita [facility] 16:36:25 18149 house dust allergeni c extract environme nt,medica tion cough moderate Not available 01/01/2023 72708 9 RxNorm [facility] 16:50:37 88416 mold extract environme nt cough moderate Not available 01/01/2023 78810 8 RxNorm Anna Jenae neil [place] - [facility] 3 16:50:37 Medications Name Sig Start Date Stop Date Status Note LastModified by Organization Details LastModified Time Mirena 21 mcg/24 hr (up to 8 years) 52 mg intrauter ine device as directed 2023 active Not Available Not Available Not Avai lable Akne-Myci n 2 % topical ointment apply by topical route 2 times every day a thin layer to the affected area(s) in the morning and evening 03/05 completed Prescrib ed Elsewher e: No Locat ion: [facility] Modify By: jennifer bocanegra DateTime : 08/12/19 14 09:00:00 AM Not Available Not Available Not Available benzonata te 100 mg capsule 11/03 completed Not Available Not Available Not Available azelastin e 137 mcg (0.1 %) nasal spray USE 2 SPRAYS IN EACH NOSTRIL TWICE DAILY active Not Available Not Available No t Available Vitamin D2 1,250 mcg (50,000 unit) capsule take 1 capsule (48490EQ ITS) by oral route every week 03/05 completed Prescrib ed Elsewher e: No Locat ion: [facility] odify By: jennifer bocanegra DateTime : 07/24/20 13 11:20:57 AM Not Available Not Available Not Available fluticaso ne propionat e 50 mcg/actua tion nasal spray,rani pension SHAKE LIQUID AND USE 2 SPRAYS IN EACH NOSTRIL TWICE DAILY active Not Available Not Available No t Available amoxicill in 875 mg-potass ium clavulana te 125 mg tablet TAKE 1 TABLET BY MOUTH TWICE DAILY FOR 10 DAYS active Not Available Not Available No t Available apple cider vinegar 11/03 completed Not Available Not Available Not Available cholecalc iferol (vitamin D3) 1,250 mcg (50,000 unit) capsule Take 1 capsule every week by oral route. active Not Available Not Available No t Available Triveen-D uo DHA 29 mg-1 mg-400 mg oral pack take 1 by Oral route every day 05/28 completed Prescrib ed Elsewher e: No Locat ion: [facility] odify By: jennifer jacobsonunter DateTime : 06/17/20 13 10:15:00 AM Not Available Not Available Not Available Sh[facility]a [facility] 2016 active Not Available Not Available Not Avai lable Auvi-Q 0.3 mg/0.3 mL injection , auto-inje ctor USE IN THE MUSCLE DIRECTED 12/11 completed Not Available Not Available Not Available Saxenda 3 mg/0.5 mL (18 mg/3 mL) subcutane ous pen injector active Not Available Not Available Not Available One Daily 27 mg iron-800 mcg tablet take 1 tablet by oral route every day 10/06 completed Prescrib ed Elsewher e: Yes Loca tion: [facility] M odify By: khoi [place] ncounter DateTime : 06/23/20 14 09:30:00 AM Not Available Not Available Not Available TRUEplus Pen Needle 32 gauge x 5/32 USE ONE NEEDLE FOR INJECTIO N ONCE DAILY 06/24 completed Not Available Not Available Not Available Lyllana 0.05 mg/24 hr transderm al patch APPLY 1 PATCH TOPICALL Y TO THE SKIN 2 TIMES A WEEK 2024 active Not Available Not Available Not Avai lable Wegovy 0.25 mg/0.5 mL subcutane ous pen injector Inject 0.25 mg every week by subcutan eous route. 06/24 completed Not Available Not Available Not Available Zepbound 2.5 mg/0.5 mL subcutane ous pen injector ADMINIST ER 2.5 MG UNDER THE SKIN EVERY WEEK 06/24 completed Not Available Not Available Not Available Vitals Date Recorded Body height Body mass index (BMI) Body weight Systolic And Diastolic Provider Name and Address Organization Details Last Updated DateTime 09/05/2024 158.12 cm 32.9 kg/m2 20558.66 g 139/93 mm[Hg] Shanna Gupta [facility] 09/05/2024 11:03:34 Date Recorded Body height Body mass index (BMI) Body weight Systolic And Diastolic Provider Name and Address Organization Details Last Updated DateTime 03/23/2023 158.12 cm 31.9 kg/m2 23346.54 g 128/78 mm[Hg] [facility] 03/23/2023 12:47:41 Date Recorded Body height Body mass index (BMI) Body weight Systolic And Diastolic Provider Name and Address Organization Details Last Updated DateTime 04/09/2023 158.12 cm 31.9 kg/m2 75797.54 g 135/78 mm[Hg] [facility] 04/09/2023 16:51:17 Date Recorded Body height Body mass index (BMI) Body weight Systolic And Diastolic Provider Name and Address Organization Details Last Updated DateTime 06/24/2024 158.12 cm 32.5 kg/m2 91246.03 g 164/96 mm[Hg] Priscila Bejarano [facility] 06/24/2024 15:50:46 Date Recorded Systolic And Diastolic Systolic And Diastolic Provider Name and Address Organization Details Last Updated DateTime 07/24/2024 166/108 mm[Hg] 130/80 mm[Hg] GLEN Campa [address], [place], [address], [facility] 07/24/2024 10:15:10 Date Recorded Body height Body mass index (BMI) Body weight Systolic And Diastolic Provider Name and Address Organization Details Last Updated DateTime 07/24/2024 158.12 cm 33.8 kg/m2 87566.9 g 173/102 mm[Hg] Shanna Gupta [facility] 07/24/2024 09:40:55 Social History Question Answer Notes LastModified by Organizat ion Details LastModified Time Tobacco Smoking Status Never Smoker [facility] 04/09/2023 16:43:07 Do You Have An Advance Directive? No [email or web address] Information n ot available 11/03/2021 How Many Years Have You Consumed Alcohol? 15 [email or web address] Information not available 11/03/2021 Are You Blind Or Do You Have Difficulty Seeing? No [email or web address] Information n ot available 11/03/2021 What Is Your Level Of Caffeine Consumption? Occasional [email or web address] Information not available 11/03/2021 How Much Tobacco Do You Chew? None [email or web address] Information not available 11/03/2021 In The 14 Days Before Symptom Onset, Have You Had Close Contact With A Laboratory-confirm ed COVID-19 While That Case Was Ill? No [email or web address] Information n ot available 11/03/2021 In The 14 Days Before Symptom Onset, Have You Had Close Contact With A Person Who Is Under Investigation For COVID-19 While That Person Was Ill? No Information not available 11/03/2021 Have You Been To An Area Known To Be High Risk For COVID-19? No [email or web address] Information not available 11/03/2021 Are You Deaf Or Do You Have Serious Difficulty Hearing? No [email or web address] Information not available 11/03/2021 What Type Of Diet Are You Following? REGULAR [email or web address] Information n ot available 11/03/2021 What Is The Highest Grade Or Level Of School You Have Completed Or The Highest Degree You Have Received? [id number] [email or web address] Information not available 11/03/2021 Are There Any Guns Present In Your Home? No Information not available 10/07/2020 Do You Use Protection During Sex? No [email or web address] Information not available 11/03/2021 Do You Use Your Seat Belt Or Car Seat Routinely? Yes [email or web address] Information not available 11/03/2021 Do You Have Smoke And Carbon Monoxide Detectors In Your Home? Yes [email or web address] Information not available 11/03/2021 How Much Tobacco Do You Smoke? No Information not available 11/03/2021 Do You Use Sunscreen Routinely? Yes Information not available 11/03/2021 Have You Used IV Drugs? No [email or web address] Information not available 11/03/2021 Do You Have Difficulty Walking Or Climbing Stairs? No [email or web address] Information not available 04/09/2023 Sex: Unknown Functional Status Question Answer Note LastModified by Organizat ion Details LastModified Time Do you use any illicit or recreational drugs? No [email or web address] Information not available 11/03/2021 What is your level of alcohol consumption? Occasional [email or web address] Information not available 11/03/2021 Are you able to walk? YESWOREST Information not available 10/07/2020 Are you able to care for yourself? 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 No Information not available 04/09/2023 What is your exercise level? Moderate [email or web address] Information not available 11/03/2021 Mental Status Question Answer Note LastModified by Organization D etails LastModified Time Do you feel stressed (tense, restless, nervous, or anxious, or unable to sleep at night)? [id number] [email or web address] Information not available 11/03/2021 Family History Relationship Description Onset Age of this Age Resolved Age Notes LastModified by Organization Details LastModified Time Maternal Grandfather Diabetes mellitus [email or web address] Not available 11/2022 16:50:40 Maternal Grandfather Malignant neoplasm of lung [email or web address] Not available 11/2022 16:50:40 Maternal Grandfather Malignant neoplasm of lung [email or web address] Not available 01/2025 10:46:19 Maternal Grandfather Diabetes mellitus [email or web address] Not available 01/2025 10:46:19 Paternal Grandfather Diabetes mellitus [email or web address] Not available 11/2022 16:50:40 Paternal Grandfather Diabetes mellitus [email or web address] Not available 01/2025 10:46:19 Medical History Condition Response Allergies (Food, seasonal, environmental ) N Other N Breast Cancer N Drug/Latex Allergies/Reactions N Blood Transfusion N Dermatologic Disorders N Lung Disease N Defects or Inherited Disease N Breast Problem N Gestational Diabetes N Hematologic disorders N Anesthesia Complications N History of STI N Deep Vein Thrombosis N Polycystic ovary syndrome N Anxiety Disorder N Autoimmune disease N Arthritis N Infertility N Polyps N Acid Reflux (GERD) N History of abnormal pap Y Cancer N Stroke N Varicosities N Neurologic/Epilepsy N Endometriosis N High Cholesterol N Headaches N Fibromyalgia N Kidney Disease N Heart Problems N Kidney or Bladder Problems N Thyroid Problems N GI Problems N Eating Disorder N Anemia N Art (IVF or FET) N Psychiatric Illness N Ovarian Cancer N Diabetes N Pulmonary (TB, Asthma) N Hepatitis/Liver Disease N No Past Medical History N Eczema N Urinary Tract Infection N Abuse/Domestic Violence N Asthma N Trauma/Violence N Depression/ depression N Heart Disease N Pre-Eclampsia N Hypertension N Osteoporosis N Thrombophilias N Gynecological History Statement/Question Response Abnormal Pap Yes Date of Last Mammogram Date of LMP N Was last menstrual period normal Y STIs/STDs N HPV Vaccine N Duration of Flow (days) 7 Current Control Method IUD Age at First Child 33 Date of control 05/16/2017 Frequency of Cycle (Q days) 31 Sexually Active? Y IUD Menses Monthly N Date of DEXA bone scan Age of first menstrual cycle 13 Date of Last Pap Smear 07/24/2024 Sexual Problems? N Desired Control Method IUD LMP Unknown N Obstetrics History GPAL:G 2 P 2 0 0 2 Type Value Full Term 2 Living 2 Total 2 Past Encounters Encounter ID Performer Location Encounter Start Date Encounter Closed Date Diagnosis/Indication Diagnosis SNOMED-CT Code Diagnosis ICD10 Code Diagnosis Note [id number] Madiha Herring [facility] [address] [address] 10/07/2020 16:30:01 10/07/2020 17:19:50 Gynecologic examination [id number] Z01.419 Take Calcium with Vitamin D 1200mg daily if not receiving in daily diet. It is strongly advised to have an annual flu shot and up can obtain at most pharmacies . If you have not had a TDap shot in the last 10 years you should obtain one as well. Discussed with patient & provided with informatio n regarding Gardisil vaccine to prevent the 4 strains for HPV that cause cervical cancer if under age 26. Encourage safe sexual practices, to use condoms and limit partners if not already in a monogamous relationsh ip. Do monthly self breast exams. Have mammogram yearly or every other year depending on family history. BRCA testing is now available for patients with strong genetic history of female cancer. If interested contact the office. Engage in daily exercise of low impact aerobic exercise 45-60 minutes 4-5 times weekly. Avoid tobacco and illicit drugs as well as using moderation with alcohol intake less than 1-2 8 oz beverages daily. This lifestyle behavior pattern will lead to less health conditions and longer life span. If BMI greater than 25 weight watchers or dietary consult advised. Patient received above instructio ns, and questions have been answered. If you have any questions please call or respond to this email. Patient was made aware of the patient portal and may obtain a paper copy of today's plan if desired. [id number] Madiha Herring CNM [facility] [address] [address] 11/03/2021 14:57:45 11/03/2021 18:12:15 Gynecologic examination [id number] Z01.419 Z11.51 Take Calcium with Vitamin D 1200mg daily if not receiving in daily diet. It is strongly advised to have an annual flu shot and up can obtain at most pharmacies . If you have not had a TDap shot in the last 10 years you should obtain one as well. Discussed with patient & provided with informatio n regarding Gardisil vaccine to prevent the 4 strains for HPV that cause cervical cancer if under age 26. Encourage safe sexual practices, to use condoms and limit partners if not already in a monogamous relationsh ip. Do monthly self breast exams. Have mammogram yearly or every other year depending on family history. BRCA testing is now available for patients with strong genetic history of female cancer. If interested contact the office. Engage in daily exercise of low impact aerobic exercise 45-60 minutes 4-5 times weekly. Avoid tobacco and illicit drugs as well as using moderation with alcohol intake less than 1-2 8 oz beverages daily. This lifestyle behavior pattern will lead to less health conditions and longer life span. If BMI greater than 25 weight watchers or dietary consult advised. Patient received above instructio ns, and questions have been answered. If you have any questions please call or respond to this email. Patient was made aware of the patient portal and may obtain a paper copy of today's plan if desired. [id number] GLEN Campa Poth [address] [address] 12/11/2022 16:17:43 12/11/2022 16:57:13 Screening for malignant neoplasm of breast 423771280 Z12.39 Gynecologi c examination 79398340 Z01.419 Suggested Calcium with Vitamin D 1200-1500m g daily. Patient advised to get an annual flu shot in the fall and she could obtain at [facility] or [facility] take care clinic. Also to obtain TDap vaccinatio n if you have not had one in the last 10 years. Recommend yearly mammograms . Encouraged monthly self breast exams. Encourage safe sexual practices, to use condoms and limit partners if not already in a monogamous relationsh ip. Engage in daily exercise of low impact aerobic exercise 45-60 minutes 4-5 times weekly. Avoid tobacco and illicit drugs as well as using moderation with alcohol intake less than 1-2 8 oz beverages daily. This lifestyle behavior pattern will lead to less health conditions and longer life span. If BMI greater than 25 weight watchers or dietary consult advised. All questions have been answered. Patient appears to understand informatio n, but if you have any questions please call or respond to this email. [facility] - Mirena IUD. Inserted 05/16/2017 , due for removal/re insertion 05/16/2025 (+) IUD strings noted on exampap updatedSTI testing declinedma mmogram order givenFasti ng labs ordered. We discussed exercise, healthy eating.RTC in 1 year or sooner if needed BP precaution s discussed. Encouraged f/u with PCP Obesity [id number] E66.9 [id number] GLEN Campa Poth [address] [address] 12/18/2022 15:48:53 12/18/2022 17:49:29 Vitamin D deficiency 41333322 E55.9 Obesity 615499352 E66.9 Detailed hx obtained today (see HPI)we discussed her diet, her exercise, and lifestyle modificati ons she has been makingshe has been exercising and eating healthy for the past 1 year without any weight lossshe has been unable to loose weight doing lifestyle modificati ons alonewe reviewed recent labs, vitamin D low - rx sent, LDL highDiscus sed healthy eating, protein intake, portion sizes, avoid sugary drinks we reviewed obesity medication options moving forwarddis cussed phentermin e, contrave, injectable sreviewed R/B/A/cost /contraind ications of each methodshe denies any personal or fam hx of thyroid cancershe would like to start on wegovy and agrees to these riskshe will check insurance for coverage and reach out to us she will f/u in 4 weeks-kajal scott t scheduled- exercise discussed, needs to incorporat e more intentiona l exercise - recommenda tions discussed- check insurance, if coverage for wegovy, will send rx. If unable to get wegovy due to shortage we discussed saxenda (R/B/A) and will send that instead.-R TC in 4 weeks Time spent in visit is a total of 50 mins with at least 50% of visit consisting of counseling and review of plan of care. [id number] Ying Desir [facility]ARA [place] [address],[place] [address] 01/01/2023 16:29:36 01/02/2023 16:35:38 Screening for malignant neoplasm of cervix 226885369 Z12.4 Repeat pap done for unsat pap at [facility] NO CHARGE VISIT [id number] Ying Desir TARA [place] [address],[place] [address] 02/07/2023 15:59:18 02/07/2023 16:28:26 Obesity 235905673 E66.9 doing very well since starting saxendano negative SE, less cravings, more energyshe is down 15lbsshe continues to exercise regularly and make healthy choicesref ill sentRTC in 4 weeks Time spent in visit is a total of 20 mins with at least 50% of visit consisting of counseling and review of plan of care. [id number] GLEN Campa [facility] [address],[place] [address] 03/23/2023 12:29:07 03/23/2023 13:43:28 Obesity 569191954 E66.9 doing very well since starting saxendashe has maintained her weight loss since being off the saxendawe discussed continue with healthy eating, regular exercise strength and cardioshe will let us know if she is unable to restart saxenda due to shortageRT C in 4 weeks Time spent in visit is a total of 18 mins with at least 50% of visit consisting of counseling and review of plan of care. [id number] Ying Desir [facility] [address],[place] [address] 04/09/2023 16:42:55 04/09/2023 17:12:38 Screening for malignant neoplasm of cervix 695332761 Z12.4 Repeat pap done for unsat pap at [facility] NO CHARGE VISIT [id number] Ying Desir TARA [facility] [address] [address] 06/24/2024 15:37:30 06/25/2024 11:09:18 Gynecologic examination 47723353 Z01.419 Z11.51 [facility] - mirena IUD, inserted 05/16/2017 Pap - updatedSTI screen - declinedMa mmogram - order givenColon cancer screening - n/aRoutine labs - orderedRTC in 1 yr or sooner if neededenco uraged PCP f/u for BP, precaution s discussed Suggested Calcium with Vitamin D daily. Patient advised to get an annual flu shot in the fall and she could obtain at local pharmacy. Also to obtain TDap vaccinatio n if you have not had one in the last 10 years. Recommend yearly mammograms . Encouraged monthly self breast exams. Encourage safe sexual practices, to use condoms and limit partners if not already in a monogamous relationsh ip. Engage in regular exercise. Avoid tobacco and illicit drugs. This lifestyle behavior pattern will lead to less health conditions and longer life span. If BMI greater than 25 dietary consult advised. All questions have been answered. Adult heal th examination 916222667 Z00.00 Perimenopausal state 453 2999299 96630 Z78.0 discussed management options for hot flasheshor monal vs non-hormon al optionslab s orderedint in estradiol transderma l patch while keeping mirena IUD in placer/b/a reviewed, precaution s discussedw ill have labs done first, if estradiol patch desired will remove/rep lace mirena IUD Time spent in visit is a total of 25 mins with at least 50% of visit consisting of counseling and review of plan of care. [id number] Ying Desir TARA [facility] [address] [address] 07/24/2024 09:29:17 07/24/2024 11:29:34 Removal of intrauterine contraceptive device done [id number] 16532 Z30.432 Discussed HRT r/b/a/alte rnatives discussedp t desired Mirena IUD removal/re placement and to start estradiol transderma l patchesUPT (-), gc/ct/tric h testing sentrepeat pap collectedI UD removed and replaced (see procedure note)preca utions discussedR TC for string check in 4-6 weeks Time spent in visit is a total of 35 mins with at least 50% of visit consisting of counseling and review of plan of care. Insertion of intrauterine contraceptive device 04746909 Z30.430 Venereal d isease screening 521097594 Z11.3 Hormone re placement therapy 759904098 Z79.890 Screening for malignant neoplasm of cervix 615917795 Z12.4 Contracept ion care management 976513213 Z30.9 [id number] GLEN Campa [facility] [address] [address] 09/05/2024 10:44:03 09/05/2024 12:44:31 IUD check 005179748 Z30.431 Patient is here for 4-6wk IUD string check.norm al appearing IUD strings noted on examShe denies complicati ons, pain, or unpleasant side effects.Andersen ppy with this control method.Wis hes to continue.B P precaution s discussed, PCP f/u recommende d Hormone re placement therapy 692096235 Z79.890 Feeling so much better!ref ills sent, r/b/a reviewed Time spent in visit is a total of 25 mins with at least 50% of visit consisting of counseling and review of plan of care. Health Concerns Section Related Observation LastModified by Organization Detai ls LastModified Time None Recorded Concern Status LastModified by Organization Details LastModified Time None Recorded Advance Directives Directive N: Payers Insurance Date Sequence Insurance Name Policy Number Policy Long Covered Member ID Long Member ID Guarantor Name 06/24/2024 1 [place] [id number] Olinda Coulter [id number] Olinda Coulter 06/24/2024 1 [employer] (PPO) Mateusz Coulter [id number] Olinda Coulter 10/31/2021 1 [employer] [id number] Mateusz Coulter [id number] Olinda Coulter 09/09/2024 1 [employer] - [employer] - [employer]NA [id number] Mateusz Coulter [id number] Olinda Coulter Notes Date Note Type Note Provider Name and Address Organization Details Recorded Time 03/23/2023 text/html 43yopresents for weight management f/ushe has been exercising, making healthy diet choicesfeeling well, no negative [facility] has been out of stock of saxenda and she has not been able to get any refills GLEN Campa [address], [place], [address], [facility] 03/23/2023 13:42:23 04/09/2023 text/html pt here for repe at [facility] - unsat at [facility] GLEN Campa [address], [place], [address], [facility] 04/09/2023 16:59:05 06/24/2024 text/html Annual GYNReport ed bypatient.Menstrual cycle:Normal menses Urinary symptoms:No hematuria; No incontinence Vulva:No genital lesion Vagina:Normal vaginal discharge Breast:No breast pain; No breast lump; No nipple discharge Current Contraception:Satisf ied with current contraception; Intrauterine device (iud) Sexual complaints:No sexual complaints; No pain during intercourse; Normal libido Menopausal Symptoms:Normal vaginal lubrication;Hot flashes;Insomnia due to night sweats Psychological symptoms:No depression; No anxiety; No PMDD Preventive measures:Encourage self breast examination; Encourage regular exercise; Encourage no tobacco use; Encourage regular mammograms starting age 41Notes:44yo wwebc- mirena IUD, inserted 05/16/2017last pap 03/2023 : ascus, HPV (-)no mammogram hx hot flashes/night sweats over the past few months, trouble sleeping GLEN Campa [address], [place], [address], [facility] 06/25/2024 09:10:15 07/24/2024 text/html 44yopresents for Mirena IUD removal/reinsertionw ould like to start HRT for hot flashes/night sweatslabs 06/25/2024 Fsh 98.4, estradiol <5has mammogram scheduled need repeat pap done today, pap done 06/24/2024 unsat GLEN Campa [address], [place], [address], [facility] 07/24/2024 11:41:18 09/05/2024 text/html 44yopresents for IUD checks/p mirena IUD insertion 07/24/2024oing well, no issuesstarted estradiol transdermal patchfeeling so much betterno hot flashes, sleeping better, more energy GLEN Campa [address], [place], [address], [facility] 09/05/2024 11:59:13 OBGyn Episode Ob Episode Information Episode Created Date Number of Fetuses Patient Bloodtype Patient rh Status Prepregnancy Weight lbs Domestic Partner Domestic Partner Phone Father Name Histologist Status 10/07/19 21 1 CLOSED Fetus Data First Name Last Name Admitted to NICU Weight (g) Sex Living Outcome Pediatric Complications Fetus ID Race Codes Race Delivery Type 3855.53 2 F Full Term 8404 Vaginal Delivery Brad Calculation Initial Brad Date Initial Exam Date Initial Exam Provider Initial Ultrasound Date Last Menstrual Period Date Ultra Sound Weeks Gestation 0 Eighteen To Twenty Week Brad Update Ultra Sound Date Fundal Height At Umbil Quickening Date Ultra Sound Latest Weeks Gestation Final Brad Confirmed By Final Brad Confirmed Date Final Brad Date Ultra Sound Latest Days Gestation 0 0 Menstrual History Last Menstrual Date Menses Monthly On Bcp Conception Prior Menses Frequency Hcg Plus Date Menarche Onset Age Delivery Information Delivery Date Delivery Type Labor Anesthesia Weeks Gestation Incision Type Labor Labor Length Hrs Delivered By Post Complications Tubal Sterilization Discharge Date Comments 4 43 Discharge Information Feeding Method Contraceptive Method Maternal HG B and HCT Levels Ob Episode Information Episode Created Date Number of Fetuses Patient Bloodtype Patient rh Status Prepregnancy Weight lbs Domestic Partner Domestic Partner Phone Father Name Histologist Status 10/07/19 21 1 CLOSED Fetus Data First Name Last Name Admitted to NICU Weight (g) Sex Living Outcome Pediatric Complications Fetus ID Race Codes Race Delivery Type 3628.73 6 M Full Term 8403 Vaginal Delivery Brad Calculation Initial Brad Date Initial Exam Date Initial Exam Provider Initial Ultrasound Date Last Menstrual Period Date Ultra Sound Weeks Gestation 0 Eighteen To Twenty Week Brad Update Ultra Sound Date Fundal Height At Umbil Quickening Date Ultra Sound Latest Weeks Gestation Final Brad Confirmed By Final Brad Confirmed Date Final Brad Date Ultra Sound Latest Days Gestation 0 0 Menstrual History Last Menstrual Date Menses Monthly On Bcp Conception Prior Menses Frequency Hcg Plus Date Menarche Onset Age Delivery Information Delivery Date Delivery Type Labor Anesthesia Weeks Gestation Incision Type Labor Labor Length Hrs Delivered By Post Complications Tubal Sterilization Discharge Date Comments 7 40 Discharge Information Feeding Method Contraceptive Method Maternal HG B and HCT Levels
--- OUTSIDE RECORDS SUMMARY | 2025-02-17 14:16 | XMS_ITS | Continuity of Care Document ---
Author Organization [facility] Address [address] [place] [address] [address] [place] [address] Phone Care Team Providers Care Sheep Sticker Name Role Phone Ayo Bansal MD Unavailable Unavailable Procedures Procedure Date AFTER CATARACT LASER SURGERY POSTOP FOLLOW-UP VISIT CATARACT SURG W/IOL, 1 STAGE OFFICE/OUTPATIENT VISIT, [facility] OPHTHALMIC BIOMETRY Advance Directives Directive Yes / No Effective Date File Name No Information Encounters Encounter Description Practice Location Reason(s) For Visit Diagnoses Date Provider Providers Copied on Encounter [facility], [address] [place] [address], [place], [place], [address], tel:[phone] 1529 [facility] No Information 2 Rolf Rollins. [address] [facility], [address], [place], [place], [address], [place]. tel:[phone] Referring Provider: Ayo Ruff, [address] [place] [address] [address], [place], [address]. tel:[phone] [facility], [address] [place] [address], [place], [place], [address], tel:[phone] [facility] No Information 2 Rolf Rollins. [address] [facility], [address], [place], [place], [address], [place]. tel:[phone] Referring Provider: Ayo Ruff, [address] [place] [address] [address], [place], [address]. tel:[phone] [facility], [address], [place], [place], [address], tel:[phone] [facility] No Information 2 Rolf Rollins. [address] [facility], [address], [place], [place], [address], [place]. tel:[phone] Referring Provider: Ayo Ruff, [address] [facility] [address], [place], [address]. tel:[phone] OFFICE/OUTPA TIENT VISIT, [facility], [address], [place], [place], [address], tel:[phone] [facility] No Information 2 Rolf Rollins. [address] [facility], [address], [place], [place], [address], [place]. tel:[phone] Referring Provider: Ayo Ruff, [address] [facility] [address], [place], [address]. tel:[phone] Family History Family Member Type Diagnosis Age At Onset No Information Payers Payer name Insurance type Covered constitution party ID Olayinka guevara(s) DANTE [id number] Social History Type Description Quantity Date Captured Comments Sex Female Smoking Status No Information Chief Complaint And Reason For Visit No Information Reason For Referral Reason For Referral No Information History Of Present Illness Encounter Date Complaint History Of Prese nt Illness No Information Functional Status Date Functional Assessmen t No Information Instructions Date Instruction Additional Infor mation No Information Assessments Type Assessment Date No Information Patient Care Teams Name Effective Dates (start - stop) Status Members No Information
--- OUTSIDE RECORDS SUMMARY | 2025-02-17 14:16 | XMS_ITS | Clinical Summary ---
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 Gender Identity Not on file Sexual Orientation Not on file Plan of Treatment Health Maintenance Due Date Last Done Comments Cervical Cancer Screening Pa p Smear (Age 30 to 64) Every 3 Years 1981 Annual Physical 1984 Hepatitis C 1999 DTaP, Tdap and Td Vaccines ( 1 - Tdap) 2000 Hepatitis B Vaccines (1 of 3 - 19+ 3-dose series) 2000 HPV Vaccines (1 - 3-dose SCD M series) 2008 Cervical Cancer Screening Pa p with HPV Testing (Age 30 to 64) Every 5 Years 2011 Cervical Cancer Screening with HPV 2011 Mammogram Screening 2021 COVID-19 Vaccine (2023-2 5 season) 2024 Meningococcal B Vaccine Aged Out No l onger eligible based on patient's age to complete this topic Meningococcal Vaccine Aged Out No hedy meliza eligible based on patient's age to complete this topic Pneumococcal Vaccine: Pediat rics (0 to 5 Years) and At-Risk Patients (6 to 49 Years) Aged Out No longer eligible b ased on patient's age to complete this topic RSV Immunizations Under 20 Months Aged Out No longer eligible based on patient's age to complete this topic Insurance [facility] Care Teams Unit Secretary Relationship Specialty Start Date End Date Kendy Schuster PA-C [address] [place] [address] PCP - General PHYSICIAN HEMODIALYSIS PATIENT CARE SPECIALIST 09/17/18
--- OUTSIDE RECORDS SUMMARY | 2025-02-17 14:16 | XMS_ITS | Continuity of Care Document ---
Author Organization [facility] Address [address] [place] [address] Phone Care Team Providers Care Lip Of Shank Cutter Name Role Phone Doisy, Edward Unavailable Unavailable Advance Directives Directive Yes / No Effective Date File Name No Information Encounters Encounter Description Practice Location Reason(s) For Visit Diagnoses Date Provider Providers Copied on Encounter [facility], [address], [place], [place], [address], [place] tel:[phone] [facility] No Information [address] Doisy Edward. [address] , [address], [place], [address], [place]. tel:[phone] Family History Family Member Type Diagnosis Age At Onset No Information Payers Payer name Insurance type Covered constitution party ID Authoriza tion(s) No Information Social History Type Description Quantity Date Captured [...]
--- OUTSIDE RECORDS SUMMARY | 2025-02-17 14:16 | XMS_ITS | Patient Health Record ---
Author Organization [facility] [employer] [place] ([address]) Address [address] [place] [address] Care Team Providers Care Housing Director Name Role Phone Kendy Schuster Primary Care Provider UnavailFarhana Escamilla Unavailable [phone] Franco Lim Unavailable [phone] Liban Lloyd Unavailable [phone] Allergies No Known Allergies Reason For Referral No Information Medications Medication SIG (Take, Route, Frequency, Duration) Notes Start Date End Date Status ALIGN 4 mg 1 cap(s) orally once a day Active Fluticasone Propionate 50 MCG/ACT 2 spray(s) in each nostril BID; Duration: 30 day(s) Not-Bandar ing CETIRIZINE 10 mg 1 tab(s) orally once a day; Duration: 30 days Active Align 4 MG 1 cap(s) orally once a day Not-Taking AUVI -Q 0.3 mg as directed intramuscularly once; Duration: 30 days Active Flonase Allergy Relief 50 MCG/ACT 1 spray(s) in each nostril once a day; Duration: 30 day(s) Not-Taking NASAL WASHES N/A as directed intranas ally as needed; Duration: 30 Active Estradiol 0.05 MG/24HR Transdermal; Dura tion: 84 Days Active SIT (TRADITIONAL) variable per schedule SC per schedule; Duration: to be determined Active Xhance 93 MCG/ACT 2 sprays (1 spray in each nostril) Nasally Twice a day; Duration: 30 day(s) 01/13/2025 Active Azelastine HCl 137 MCG/SPRAY 2 sprays in each nostril Nasally Twice a day; Duration: 30 days Active Fluticasone Propionate 50 MCG/ACT 2 sprays in each nostril Nasally Twice a day; Duration: 30 days Active Cetirizine HCl 10 MG 1 tab(s) orally onc e a day; Duration: 30 days Active Azelastine HCl 137 MCG/SPRAY 2 spray(s) intranasally 2 times a day; Duration: 30 days 11/07/2023 Active Auvi-Q 0.3 MG/0.3ML as directed intramuscularly once; Duration: 30 days Active ZyrTEC Allergy 10 MG 1 tab(s) orally once a day Not-Taking Immunizations Vaccine Route Administration Date Status Comme nts Influenza Unknown 05/10/2021 Administered Portal Infor nura Social History Tobacco Use: Social History Observation Description Date Details (start date - stop date) Never Smoker NA - NA Sex Assigned At : Social History Observation Description Sex Assigned At Female Smoking Smart Form: Question Answer Notes Are you a: never smoker Tobacco Control (Standard) Question Answer Notes Tobacco use: Nonsmoker Problems Problem Type SNOMED Code ICD Code Onset Dates Problem Status W/U Status Risk Notes Problem Chronic allergic conjunctivitis (56437853) Other chronic allergic conjunctivitis (H10.45) Active confirmed Problem Allergic rhinitis caused by pollen (disorder) (46062446) Allergic rhinitis due to pollen (J30.1) Active confirmed Problem Allergic rhinitis (93766565) Other allergic rhinitis (J30.89) Active confirmed Problem Polyp of nasal cavity (disorder) (878576779) Nasal polyp, unspecified (J33.9) Active confirmed Problem Allergic rhinitis caused by animal hair and dander (552384348364198) Allergic rhinitis due to animal (cat) (dog) hair and dander (J30.81) Active confirmed Problem Elevated blood pressure reading without diagnosis of hypertension (300856678) Elevated blood-pressure reading, without diagnosis of hypertension (R03.0) Active confirmed Vital Signs Oximetry 99 % 01/13/2025 Blood pressure diastolic 91 mm Hg 01/13/2025 Height 62 in 01/13/2025 Blood pressure systolic 157 mm Hg 01/13/2025 Weight 182.8 lbs 01/13/2025 BMI 33.43 kg/m2 01/13/2025 Encounters Encounter Location Date Provider Diagnosis [address] [place] [address] 02/28/2024 Franco Lim Allergic rhinitis du e to pollen J30.1 ; Other allergic rhinitis J30.89 ; Allergic rhinitis due to animal (cat) (dog) hair and dander J30.81 and Other chronic allergic conjunctivitis H10.[address] [address] 03/20/2024 Liban Lloyd Allergic rhinitis du e to pollen J30.1 ; Other allergic rhinitis J30.89 ; Other chronic allergic conjunctivitis H10.45 ; Nasal polyp, unspecified J33.9 and Elevated blood-pressure reading, without diagnosis of hypertension R03.[address] [place] [address] 05/06/2024 Franco Lim Allergic rhinitis du e to pollen J30.1 ; Other allergic rhinitis J30.89 ; Allergic rhinitis due to animal (cat) (dog) hair and dander J30.81 and Other chronic allergic conjunctivitis H10.[address] [address] 06/19/2024 Franco Lim Allergic rhinitis du e to pollen J30.1 ; Other allergic rhinitis J30.89 ; Allergic rhinitis due to animal (cat) (dog) hair and dander J30.81 and Other chronic allergic conjunctivitis H10.[address] [address] 07/31/2024 Franco Lim Allergic rhinitis du e to pollen J30.1 ; Other allergic rhinitis J30.89 ; Allergic rhinitis due to animal (cat) (dog) hair and dander J30.81 and Other chronic allergic conjunctivitis H10.[address] [place] [address] 09/04/2024 Franco Lim Allergic rhinitis du e to pollen J30.1 ; Other allergic rhinitis J30.89 ; Allergic rhinitis due to animal (cat) (dog) hair and dander J30.81 and Other chronic allergic conjunctivitis H10.45 [address] [place] [address] 10/09/2024 Franco Lim Allergic rhinitis du e to pollen J30.1 ; Other allergic rhinitis J30.89 ; Allergic rhinitis due to animal (cat) (dog) hair and dander J30.81 and Other chronic allergic conjunctivitis H10.[address] [place] [address] 11/13/2024 Franco Lim Allergic rhinitis du e to pollen J30.1 ; Other allergic rhinitis J30.89 ; Allergic rhinitis due to animal (cat) (dog) hair and dander J30.81 and Other chronic allergic conjunctivitis H10.[address] [place] [address] 12/15/2024 Franco Lim Allergic rhinitis du e to pollen J30.1 ; Other allergic rhinitis J30.89 ; Allergic rhinitis due to animal (cat) (dog) hair and dander J30.81 and Other chronic allergic conjunctivitis H10.[address] [place] [address] 01/13/2025 Farhana Boyd Allergic rhinitis du e to pollen J30.1 ; Other allergic rhinitis J30.89 ; Other chronic allergic conjunctivitis H10.45 ; Nasal polyp, unspecified J33.9 and Elevated blood-pressure reading, without diagnosis of hypertension R03.[address] [place] [address] 02/11/2025 Franco Lim Allergic rhinitis du e to pollen J30.1 ; Other allergic rhinitis J30.89 ; Allergic rhinitis due to animal (cat) (dog) hair and dander J30.81 and Other chronic allergic conjunctivitis H10.[address] [place] [address] 12/31/2024 Franco Lim Assessments Encounter Date Diagnosis (ICD Code) Assessment Notes Treatment Notes Treatment Clinical Notes Section Notes 02/28/2024 Allergic rhinitis due to pollen (ICD-10 - J30.1) 03/20/2024 Allergic rhinitis due to pollen (ICD-10 - J30.1) Efrem clearly suffers from atopic disease based upon our skin testing and clinical history. Accordingly, we have introduced a new, aggressive medication regimen, discussed nasal washes and allergy-specific avoidance measures. On MM since 05/2022. Continues on SCIT which she is tolerating without local or systemic reaction. procedure tolerated today without issue. Recently with increased AM cough in realtion to PND. Advised restarting Flonase and nasal washes. Keep AIE on hand 2 hours after SCIT. Increase SCIT frequency in peak seasons PRN. Continue to premedicate with Zyrtec. Follow[facility]up [facility] SCIT and 3 months for interval evaluation and management 03/20/2024 Other allergic rhinitis (ICD-10 - J30.89) Follow allergen avoidance, meds and continue SCIT as an adjunctive treatment to current regimen 05/06/2024 Allergic rhinitis due to pollen (ICD-10 - J30.1) 06/19/2024 Allergic rhinitis due to pollen (ICD-10 - J30.1) 07/31/2024 Allergic rhinitis due to pollen (ICD-10 - J30.1) 09/04/2024 Allergic rhinitis due to pollen (ICD-10 - J30.1) 10/09/2024 Allergic rhinitis due to pollen (ICD-10 - J30.1) 11/13/2024 Allergic rhinitis due to pollen (ICD-10 - J30.1) 12/15/2024 Allergic rhinitis due to pollen (ICD-10 - J30.1) 01/13/2025 Allergic rhinitis due to pollen (ICD-10 - J30.1) Efrem clearly suffers from atopic disease based upon our skin testing and clinical history. Accordingly, we have encouraged her medication regimen, discussed nasal washes and allergy-specific avoidance measures. On MM since 05/2022. - Continues on SCIT which she is tolerating without local or systemic reaction. Procedure tolerated today without issue. - Keep AIE on hand 2 hours after SCIT. - Increase SCIT frequency in peak seasons PRN. - Reporting increased sinus pressure with history of self-reported nasal polyps. Start trial of XHANCE, samples provided. Consider updated ENT evaluation if symptoms persist. - Follow-up as scheduled for SCIT and in 6 months for further evaluation and management 01/13/2025 Other allergic rhinitis (ICD-10 - J30.89) Follow allergen avoidance, meds and continue SCIT as an adjunctive treatment to current regimen 02/11/2025 Allergic rhinitis due to pollen (ICD-10 - J30.1) 02/11/2025 Other allergic rhinitis (ICD-10 - J30.89) 12/15/2024 Other allergic rhinitis (ICD-10 - J30.89) 01/13/2025 Other chronic allergic conjunctivitis (ICD-10 - H10.45) Given ocular signs and symptoms I encouraged allergy avoidance measures and meds as above. If symptoms persist, continue adding additional medications including intraocular antihistamine/ma st cell stabilizer, PRN and consider SCIT as an adjunctive measure 11/13/2024 Other allergic rhinitis (ICD-10 - J30.89) 10/09/2024 Other allergic rhinitis (ICD-10 - J30.89) 09/04/2024 Other allergic rhinitis (ICD-10 - J30.89) 07/31/2024 Other allergic rhinitis (ICD-10 - J30.89) 06/19/2024 Other allergic rhinitis (ICD-10 - J30.89) 05/06/2024 Other allergic rhinitis (ICD-10 - J30.89) 03/20/2024 Other chronic allergic conjunctivitis (ICD-10 - H10.45) Given ocular signs and symptoms I encouraged allergy avoidance measures and meds as above. If symptoms persist, continue adding additional medications including intraocular antihistamine/ma st cell stabilizer, PRN and consider SCIT as an adjunctive measure 02/28/2024 Other allergic rhinitis (ICD-10 - J30.89) 02/28/2024 Allergic rhinitis due to animal (cat) (dog) hair and dander (ICD-10 - J30.81) 05/06/2024 Allergic rhinitis due to animal (cat) (dog) hair and dander (ICD-10 - J30.81) 06/19/2024 Allergic rhinitis due to animal (cat) (dog) hair and dander (ICD-10 - J30.81) 03/20/2024 Nasal polyp, unspecified (ICD-10 - J33.9) Noted history of nasal polyp 20 years ago after seeing ENT. No records to review. She denies history of recurrent sinus infections or loss of smell. Will continue to monitor. If issues arise, plan on establishing with ENT 07/31/2024 Allergic rhinitis due to animal (cat) (dog) hair and dander (ICD-10 - J30.81) 09/04/2024 Allergic rhinitis due to animal (cat) (dog) hair and dander (ICD-10 - J30.81) 10/09/2024 Allergic rhinitis due to animal (cat) (dog) hair and dander (ICD-10 - J30.81) 11/13/2024 Allergic rhinitis due to animal (cat) (dog) hair and dander (ICD-10 - J30.81) 12/15/2024 Allergic rhinitis due to animal (cat) (dog) hair and dander (ICD-10 - J30.81) 01/13/2025 Nasal polyp, unspecified (ICD-10 - J33.9) Noted history of nasal polyp 20 years ago after seeing ENT. No records to review. She denies history of recurrent sinus infections or loss of smell. See plan above 02/11/2025 Allergic rhinitis due to animal (cat) (dog) hair and dander (ICD-10 - J30.81) 01/13/2025 Elevated blood-pressure reading, without diagnosis of hypertension (ICD-10 - R03.0) BP elevated today without symptoms of urgency or emergency. Continue serial checks and follow-up with PCP 02/11/2025 Other chronic allergic conjunctivitis (ICD-10 - H10.45) 12/15/2024 Other chronic allergic conjunctivitis (ICD-10 - H10.45) 11/13/2024 Other chronic allergic conjunctivitis (ICD-10 - H10.45) 10/09/2024 Other chronic allergic conjunctivitis (ICD-10 - H10.45) 09/04/2024 Other chronic allergic conjunctivitis (ICD-10 - H10.45) 07/31/2024 Other chronic allergic conjunctivitis (ICD-10 - H10.45) 03/20/2024 Elevated blood-pressure reading, without diagnosis of hypertension (ICD-10 - R03.0) BP elevated today without symptoms of urgency or emergency. Continue serial checks and follow-up with PCP 05/06/2024 Other chronic allergic conjunctivitis (ICD-10 - H10.45) 06/19/2024 Other chronic allergic conjunctivitis (ICD-10 - H10.45) 02/28/2024 Other chronic allergic conjunctivitis (ICD-10 - H10.45) Plan Of Treatment Next Appt Details Provider Name:Franco Lim , 02/17/2025 04:20:00 PM, [address] [place], [address], Insurance Providers Payer Name Payer Address Payer Phone Subscriber Number Group Number Insured Name Patient Relationship to Insured Coverage Start Date Coverage End Date [facility] [address] [place] [address] [phone] [id number] Mateusz Coulter Spouse - patient is the spouse of the insured Medical (General) History Medical History History ICD Code Allergic rhinitis due to pollen J30.1 Other allergic rhinitis J30.89 Other chronic allergic conjunctivitis H1 0.45 Nasal polyp, unspecified J33.9 Elevated blood-pressure reading, without diagnosis of hypertension R03.0 Surgical History Surgery Date(Month/Year) Cataract 11/20/2011
== END 2025-02-17 14:09 | disposition home or self-care (01) ==
LOC: ANHIMG 14:13
PROVIDERS: PCP Physician Assistant; Visit Provider Nurse Practitioner
DX: Z12.31 Encounter for screening mammogram for malignant neoplasm of breast (principal)
CPT/HCPCS: 77063; 77067